=== PATIENT | male | born 2000 | race African-American/Black ===

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

== ENCOUNTER 2022-06-26 10:28 | Outpatient (CLI) | payer OTHER ==
[2022-06-26 10:54] LABS: PLATELET COUNT 205 K/uL (142-355)
[2022-06-26 11:04] LABS: POTASSIUM 3.5 mmol/L (3.6-5.2)
== END 2022-06-26 18:56 | disposition home or self-care (01) ==
LOC: LABW 10:28
PROVIDERS: ATTEND Family Medicine
DX: M79.604 Pain in right leg (principal); J45.909 Unspecified asthma, uncomplicated; M62.81 Muscle weakness (generalized); R51.9 Headache, unspecified; E66.01 Morbid (severe) obesity due to excess calories; B35.3 Tinea pedis; K21.9 Gastro-esophageal reflux disease without esophagitis
CPT/HCPCS: 36415; 80053; 80061; 81002; 82550; 83735; 84439; 84443; 85027; 85652